=== PATIENT | female | born 1970 | race Caucasian/White ===

== ENCOUNTER 2022-09-13 10:56 | Day surgery (SDC) | payer BC ==
[~2022-09-13 10:56] MED LIST: Metoclopramide 10 MG/2 ML SDV IV PRN; Sodium Chloride 0.9% 1,000 ML IV SCH
[2022-09-13] MEDS ORDERED: Glycopyrrolate 0.2 MG/ML 2 ML SDV ONE (13:25)
== END 2022-09-13 14:15 | disposition home or self-care (01) ==
LOC: LB.SDS 10:56
PROVIDERS: ATTEND Surgery
DX: Z12.11 Encounter for screening for malignant neoplasm of colon (principal); D12.2 Benign neoplasm of ascending colon; F17.200 Nicotine dependence, unspecified, uncomplicated; Z86.010 Personal history of colon polyps; Z80.0 Family history of malignant neoplasm of digestive organs
CPT/HCPCS: 88305; J2704; J3490; J7030

== ENCOUNTER 2024-03-27 10:05 | Inpatient (IN) | payer BC ==
[2024-03-27] MEDS ORDERED: Sodium Chloride 0.9% 10 ML Syringe FLUSH PRN (10:23)
[2024-03-27 10:34] LABS: HEMATOCRIT 43.5 % (37.0-47.0); HEMOGLOBIN 14.6 g/dL (11.5-16.5); MEAN CORPUSCULAR HEMOGLOBIN 31.6 pg (27.0-32.0); MEAN CORPUSCULAR HGB CONC 33.6 g/dL (31.0-35.0); MEAN PLATELET VOLUME 10.3 fL (6.0-10.0); RED BLOOD CELL COUNT 4.62 M/uL (3.80-5.80); RED CELL DISTRIBUTION WIDTH 13.3 % (11.0-16.0); WHITE BLOOD CELL COUNT,WBC 13.6 K/uL (4.0-11.0)
[2024-03-27] MEDS: Sodium Chloride 0.9% 1,000 ML IV SCH (10:57)
[2024-03-27 10:59] LABS: INFLUENZA A NAA NEGATIVE (NEGATIVE); INFLUENZA B NAA NEGATIVE (NEGATIVE); RESPIRATORY SYNCYTIAL VIR NAA NEGATIVE (NEGATIVE)
[2024-03-27 11:05] LABS: CORONAVIRUS COVID-19 NAA NEGATIVE (NEGATIVE)
[2024-03-27 11:09] LABS: LACTIC ACID 1.1 mmol/L (0.4-2.0)
[2024-03-27 11:10] LABS: A/G RATIO 1.1 (0.8-2.0); ALBUMIN 4.1 g/dL (3.4-5.0); ANION GAP 14.4 mmol/L (5.0-15.0); BILIRUBIN TOTAL 0.5 mg/dL (0.0-1.0); BUN/CREATININE RATIO 13.4 (6-25); CALCIUM 9.2 mg/dL (8.5-10.1); CARBON DIOXIDE,CO2 27.4 mmol/L (21.0-32.0); CREATININE 0.82 mg/dL (0.55-1.02); EST CRCL DRUG DOSING (CG) 62.03 mL/min; POTASSIUM,K 3.8 mmol/L (3.5-5.1); TROPONIN I HIGH SENSITIVITY 57.6 pg/ml (<=60.4)
[2024-03-27] MEDS: Azithromycin 500 MG in Sodium Chloride 0.9% 250 ML IV ONE (11:12)
[2024-03-27] MEDS: Albuterol/Ipratropium 3.0-0.5 MG/3 ML Neb Soln NEB PRN (11:14)
[2024-03-27] MEDS: Albuterol/Ipratropium 3.0-0.5 MG/3 ML Neb Soln ONE ×2 (11:41→14:26)
[2024-03-27] MEDS: Iopamidol 755 Mg/ML 100 ML Bottle IV SCH (12:11)
[2024-03-27] MEDS: Sodium Chloride 0.9% 50 ML SDV FLUSH ONE (12:11)
[2024-03-27] MEDS ORDERED: Azithromycin 250 MG Tab ONE (13:00)
[2024-03-27] MEDS ORDERED: predniSONE 20 MG Tab ONE (13:00)
[2024-03-27] MEDS ORDERED: Albuterol 6.7 GM Inhaler INH ONE (13:00)
[2024-03-27] MEDS: predniSONE 20 MG Tab PO SCH (15:25)
[2024-03-27] MEDS: Heparin Sodium 5,000 Units/ML Vial SUBCUT SCH (15:25)
[2024-03-27] MEDS: Albuterol 0.083% 2.5 MG/3 ML Neb Soln NEB SCH (15:26)
[2024-03-27] MEDS: Budesonide 0.5 MG/2 ML Neb Susp NEB SCH (15:26)
[2024-03-27] MEDS: Nicotine 7 MG/24 Hr Patch TRDERM SCH (17:42)
[2024-03-28] MEDS: Azithromycin 250 MG in Sodium Chloride 0.9% 250 ML IV SCH (08:00)
[2024-03-28] MEDS: Albuterol 0.083% 2.5 MG/3 ML Neb Soln NEB SCH (13:31)
[2024-03-29] MEDS: predniSONE 10 MG Tab PO SCH (07:10)
[2024-03-29] MEDS: Azithromycin 250 MG Tab PO SCH (07:13)
[2024-03-29] MEDS ORDERED: Albuterol 6.7 GM Inhaler INH ONE (10:22)
[2024-03-29] MEDS ORDERED: Azithromycin 250 MG Tab ONE ×2 (10:22→10:42)
[2024-03-29] MEDS ORDERED: predniSONE 20 MG Tab ONE (10:22)
== END 2024-03-29 11:15 | disposition home or self-care (01) | DRG 140 ==
LOC: LB.ED 10:05 → LB.MS 13:05
PROVIDERS: ADMIT Surgery; ATTEND Surgery
DX: J44.1 Chronic obstructive pulmonary disease with (acute) exacerbation (principal); F17.210 Nicotine dependence, cigarettes, uncomplicated; F15.90 Other stimulant use, unspecified, uncomplicated; Z98.890 Other specified postprocedural states
CPT/HCPCS: 0241U; 36415; 71045; 71275; 80053; 83605; 83735; 83880; 84484; 85027; 85379; 86140; 87040; 93005; 93010; 94640; 96361; 96365; 99222; 99232; 99238; 99285-25; A9270-GY; J0456; J1644; J3490; J7030; J7050; J7512; J7620; Q9967